=== PATIENT | female | born 1950 | race Caucasian/White ===

== ENCOUNTER → 2016-11-09 | Outpatient (CLI) | payer MEDICARE, MEDICAID ==
[~2016-11-09] MED LIST: ASPIRIN81 MG PO; CELEXA20 MG PO; NITROSTAT0.4 MG SL; PLAVIX75 MG PO; PRAVACHOL40 MG PO; SYNTHROID88 MCG PO; TOPROL XL25 MG PO; VITAMIN D31000 UNIT PO; ZETIA10 MG PO
== END | disposition short-term general hospital (02) ==
LOC: CLNEUR 09:55
DX: H53.8 Other visual disturbances (principal); R41.0 Disorientation, unspecified

== ENCOUNTER → 2016-11-17 | Outpatient (CLI) | payer MEDICARE, MEDICAID | END | disposition short-term general hospital (02) | LOC: CLCARD 09:46 | DX: I25.10 Atherosclerotic heart disease of native coronary artery without angina pectoris (principal); I73.9 Peripheral vascular disease, unspecified; F17.201 Nicotine dependence, unspecified, in remission; R68.2 Dry mouth, unspecified; I10 Essential (primary) hypertension; E78.5 Hyperlipidemia, unspecified; Z95.5 Presence of coronary angioplasty implant and graft; Z98.890 Other specified postprocedural states ==

== ENCOUNTER → 2016-12-08 | Outpatient (CLI) | payer MEDICARE, MEDICAID | END | disposition short-term general hospital (02) | LOC: CLVASC 13:07 | DX: Z48.812 Encounter for surgical aftercare following surgery on the circulatory system (principal); I65.22 Occlusion and stenosis of left carotid artery; I70.8 Atherosclerosis of other arteries; Z98.890 Other specified postprocedural states ==